=== PATIENT | female | born 1995 | race Caucasian/White ===

== ENCOUNTER 2020-09-24 18:05 | Inpatient (IN) | payer MEDICAID, SELFPAY ==
[~2020-09-24] VITALS: Ht 170.2 cm; Wt 100.7 kg
[2020-09-24] MEDS ORDERED: CARBOPROST 250 MCG/ML AMP IM PRN (18:40)
[2020-09-24] MEDS ORDERED: METHYLERGONOVINE 0.2 MG/ML AMP IM PRN (18:40)
[2020-09-24 18:44] VITALS: BP 134/75
[2020-09-24] MEDS ORDERED: LACTATED RINGERS 1,000 ML IV SCH (19:15)
[2020-09-24 19:30] LABS: BASOPHILS # (AUTO) 0.1 K/uL (0.00-0.22); BASOPHILS % (AUTO) 0.8 % (0.0-2.0); EOSINOPHILS # (AUTO) 0.1 K/uL (0-0.4); EOSINOPHILS % (AUTO) 0.6 % (0.0-4.0); HEMATOCRIT 24.9 % (36-48); HEMOGLOBIN 7.5 g/dL (12.0-16.0); LYMPHOCYTES % (AUTO) 17.8 % (20.5-51.1); MEAN CORPUSCULAR HEMOGLOBIN 20 pg (27-31); MEAN CORPUSCULAR HGB CONC 30 g/dL (33-37); MEAN CORPUSCULAR VOLUME 64.4 fL (80-94); MONOCYTES # (AUTO) 0.5 K/uL (0.8-1.0); MONOCYTES % (AUTO) 4.8 % (1.7-9.3); NEUTROPHILS # (AUTO) 8.4 K/uL (1.8-7.7); PLATELET COUNT (AUTO) 211 K/uL (140-450); RED BLOOD CELL COUNT(AUTO) 3.86 MIL/uL (4.20-5.40); RED CELL DISTRIBUTION WIDTH 17.9 % (11.6-13.7); WHITE BLOOD COUNT (AUTO) 11.1 K/uL (4.8-10.8)
[2020-09-24] MEDS: LACTATED RINGERS 1,000 ML IV SCH (19:32)
[2020-09-24 19:38] LABS: APPEARANCE,URINE CLEAR (CLEAR); BILIRUBIN,URINE NEGATIVE (NEGATIVE); BLOOD, URINE NEGATIVE (NEGATIVE); COLOR,URINE YELLOW (YELLOW); LEUKOCYTE ESTERASE ,URINE NEGATIVE (NEGATIVE); NITRITE, URINE POSITIVE (NEGATIVE); UGLUCOSE NEGATIVE (NEGATIVE)
[2020-09-24 19:47] LABS: BARBITURATE, URINE NEGATIVE ng/ml (NEG <=200); BENZODIAZEPINE, URINE NEGATIVE ng/mL (NEG <=200); CANNABINOID, URINE NEGATIVE ng/mL (NEG <=50); COCAINE, URINE NEGATIVE ng/mL (NEG <=300); OPIATE, URINE NEGATIVE ng/mL (NEG <=2000); PHENCYCLIDINE SCREEN,URINE NEGATIVE ng/mL (NEG <=25)
[2020-09-24] MEDS ORDERED: CITRIC ACID/SODIUM CITRATE 30 ML UDC PO ONE (19:50)
[2020-09-24 19:51] LABS: ALBUMIN 2.4 g/dL (3.4-5.0); ANION GAP 15.2 (8-16); CARBON DIOXIDE 22.1 mmol/L (21-32); CREATININE 0.6 mg/dL (0.6-1.3); POTASSIUM 3.3 mmol/L (3.5-5.1); TOTAL BILIRUBIN 0.2 mg/dL (0.0-1.0)
[2020-09-24 20:32] LABS: RBC,URINE 0-5 /HPF (0-5)
[2020-09-25] MEDS ORDERED: CITRIC ACID/SODIUM CITRATE 30 ML UDC ONE (05:26)
[2020-09-25] MEDS ORDERED: ceFAZolin 1,000 MG VIAL ONE (05:27)
--- NOTE | 2020-09-25 07:50 | NUR ---
PATIENT HAS BEEN SCREENED AND CATEGORIZED LOW NUTRITION RISK. PATIENT WILL BE SEEN WITHIN 7 DAYS OF ADMISSION. 10/01/[address]
[2020-09-25] MEDS: LACTATED RINGERS 1,000 ML IV SCH ×2 (08:00→09:49)
[2020-09-25] MEDS ORDERED: fentaNYL citrate 0.05 MG/ML VIAL ONE (08:27)
[2020-09-25] MEDS ORDERED: MORPHINE PRES FREE 10 MG/10 ML AMP IV ONE (08:28)
[2020-09-25] MEDS ORDERED: ONDANSETRON 4 MG/2 ML VIAL IVP PRN ×2 (09:00→09:05)
[2020-09-25] MEDS ORDERED: fentaNYL citrate 0.05 MG/ML VIAL IVP PRN (09:00)
[2020-09-25] MEDS ORDERED: NACL 0.9% 1,000 ML IV SCH (09:00)
[2020-09-25] MEDS ORDERED: diphenhydrAMINE 50 MG/ML VIAL IVP PRN ×2 (09:00→09:05)
[2020-09-25] MEDS ORDERED: OXYTOCIN 20 UNITS in LACTATED RINGERS 1,000 ML IV SCH ×2 (09:00→11:15)
[2020-09-25] MEDS ORDERED: MEPERIDINE 25 MG/ML SYR IVP PRN (09:00)
[2020-09-25] MEDS ORDERED: NALOXONE 0.4 MG/ML VIAL IVP PRN ×2 (09:05)
[2020-09-25] MEDS ORDERED: MIDAZOLAM 2 MG/2 ML VIAL ONE (10:03)
[2020-09-25] MEDS ORDERED: DEXAMETHASONE 4 MG/ML VIAL ONE (10:09)
[2020-09-25] MEDS ORDERED: ONDANSETRON 4 MG/2 ML VIAL ONE (10:09)
[2020-09-25] MEDS ORDERED: PHENYLEPHRINE 10 MG/ML VIAL ONE (10:09)
[2020-09-25] MEDS ORDERED: LIDOCAINE 2% 100 MG/5 ML SYR IVP ONE (10:09)
[2020-09-25] MEDS ORDERED: OXYTOCIN 20 UNITS/LR PREMIX 1,000 ML IV ONE (10:54)
[2020-09-25] MEDS ORDERED: MEASLES, MUMPS, AND RUBELLA 1 VIAL SQVAC PRN (11:15)
[2020-09-25] MEDS ORDERED: oxyCODONE/APAP 5/325 MG 1 TAB TAB PO PRN (11:15)
[2020-09-25] MEDS ORDERED: METHYLERGONOVINE 0.2 MG/ML AMP IM PRN (11:15)
[2020-09-25] MEDS ORDERED: diphenhydrAMINE 50 MG/ML VIAL ONE (13:10)
[2020-09-25] MEDS: KETOROLAC 30 MG/ML VIAL IM/IVP SCH (13:17)
[2020-09-25] MEDS ORDERED: PROMETHAZINE 25 MG/ML VIAL IVP PRN (18:45)
[2020-09-26] MEDS ORDERED: OXYTOCIN 20 UNITS/LR PREMIX 1,000 ML IV ONE (01:25)
[2020-09-26] MEDS: KETOROLAC 30 MG/ML VIAL IM/IVP SCH ×3 (01:35→11:55)
[2020-09-26] MEDS: bisacodyL 10 MG SUPP RC SCH (08:16)
[2020-09-26 12:24] LABS: BASOPHILS # (AUTO) 0.2 K/uL (0.00-0.22); BASOPHILS % (AUTO) 1.1 % (0.0-2.0); EOSINOPHILS % (AUTO) 0.2 % (0.0-4.0); HEMATOCRIT 28.9 % (36-48); HEMOGLOBIN 8.9 g/dL (12.0-16.0); LYMPHOCYTES # (AUTO) 2.2 K/uL (2.5-16.5); LYMPHOCYTES % (AUTO) 12.5 % (20.5-51.1); MEAN CORPUSCULAR HEMOGLOBIN 21 pg (27-31); MEAN CORPUSCULAR HGB CONC 31 g/dL (33-37); MEAN CORPUSCULAR VOLUME 69.5 fL (80-94); MONOCYTES # (AUTO) 0.9 K/uL (0.8-1.0); MONOCYTES % (AUTO) 4.8 % (1.7-9.3); NEUTROPHILS # (AUTO) 14.6 K/uL (1.8-7.7); NEUTROPHILS % (AUTO) 81.4 % (42.2-75.2); PLATELET COUNT (AUTO) 161 K/uL (140-450); RED BLOOD CELL COUNT(AUTO) 4.16 MIL/uL (4.20-5.40); RED CELL DISTRIBUTION WIDTH 21.9 % (11.6-13.7); WHITE BLOOD COUNT (AUTO) 17.9 K/uL (4.8-10.8)
[2020-09-26] MEDS ORDERED: CAMERA MC ONE (19:11)
[2020-09-26] MEDS ORDERED: IBUPROFEN 600 MG TAB PO PRN (20:35)
[2020-09-26] MEDS ORDERED: FLU VACCINE QS2020-21 0.5 ML SYR IMVAC PRN (21:05)
[2020-09-27] MEDS: IBUPROFEN 800 MG TAB PO PRN ×2 (02:01→15:49)
[2020-09-27] MEDS: bisacodyL 10 MG SUPP RC SCH (09:42)
== END 2020-09-27 19:33 | disposition home or self-care (01) | DRG 540 ==
LOC: MLD 18:05 → OBSVTOIN 18:05 → MFCC 09-25 11:39
PROVIDERS: ADMIT Obstetrics & Gynecology; ATTEND Obstetrics & Gynecology
PROC: 10D00Z1 Extraction of Products of Conception, Low, Open Approach (ICD-10-PCS; principal; 2020-09-25 09:00)
PROC: 3E0234Z Introduction of Serum, Toxoid and Vaccine into Muscle, Percutaneous Approach (ICD-10-PCS; 2020-09-26)
DX: O34.211 Maternal care for low transverse scar from previous cesarean delivery (principal); O99.324 Drug use complicating childbirth; Z3A.00 Weeks of gestation of pregnancy not specified; Z59.0 Homelessness; Z37.0 Single live birth; O99.02 Anemia complicating childbirth; F15.90 Other stimulant use, unspecified, uncomplicated; K66.0 Peritoneal adhesions (postprocedural) (postinfection); O99.62 Diseases of the digestive system complicating childbirth; Z23 Encounter for immunization; D64.9 Anemia, unspecified; R71.0 Precipitous drop in hematocrit
CPT/HCPCS: 36415; 76805; 80053; 80305; 81001; 82948; 85025; 86592; 86762; 86886; 86900; 86901; 86920; 87086; 87340; 87491; 87653-90; 90715; J0690; J1100; J1200; J1885; J2001; J2210; J2250; J2270; J2370; J2405; J2590; J3010; J7060; P9016